=== PATIENT | male | born 1950 | race Caucasian/White ===

== ENCOUNTER → 2017-09-27 | Outpatient (CLI) | payer MEDICARE, OTHER ==
[~2017-09-27] MED LIST: ACE500 PO; ALL300 PO; ALLO-2 PO; AMI10 PO; AMIT-104 PO; ASP325 PO; ASPI-1471 PO; ATOR10TA24 PO; ATOR20TA65 PO; ATR10 PO; GLUC-198 PO; HYDR-2966 PO; LEVO50TA86 PO; LOR10/325 PO; LOR5/325 PO; METO100T20 PO; METO25TA23 PO; METO50TA19 PO; NIAC100040 PO; OMEP-125 PO; PNEU0.5D3 IM; SILD100T59 PO; [UNRECOGNIZED DRUG - CODE] PO
--- NOTE | 2017-09-27 16:12 | RADIOLOGY IMAGING REPORT ---
FACILITY: [facility] PATIENT NAME: Rafy Zamora : 1950 MR: [id number] V: [id number] EXAM DATE: ORDERING PHYSICIAN: UZAIR BRADEN TECHNOLOGIST: Location: [facility] [place] Patient: Rafy Zamora : 1950 Visit/Account:[id number] Date of Sevice: 09/27/2017 EXAMINATION: MRI Lumbar spine without intravenous contrast HISTORY: Chronic low back pain. COMPARISON: 11/22/2007. TECHNIQUE: Multi-planar, multi-sequence lumbar spine MRI was performed without intravenous contrast administration. FINDINGS: Alignment: 2 to 3 mm of retrolisthesis of L2 over L3. No significant change. Vertebral marrow signal: Mild discogenic bone marrow edema at L5-S1 and to a lesser degree at L4-L5. Distal thoracic cord: Negative. Conus: negative, terminates at L1 Cauda equina: Negative. Paravertebral soft tissues: Negative. Visualized abdominal and pelvic structures: Bilateral parapelvic renal cysts. Otherwise negative. Disc Spaces: Lower thoracic spine: Mild disc bulge and facet hypertrophy at T11-T12 with no significant stenosis. L1-2: Negative. L2-3: Grade 1 retrolisthesis. Moderate disc height loss with circumferential disc osteophyte complex and facet hypertrophy. No significant spinal canal stenosis. Moderate bilateral neural foraminal sten osis. Worsened compared with 11/22/2007. L3-4: Mild disc height loss with circumferential disc bulge, facet hypertrophy, and ligamentum flavum thickening. Mild spinal canal stenosis. Mild right and moderate left neural foraminal stenosis. Mini awa worsened compared with 11/22/2007. L4-5: Moderate disc at loss and disc osteophyte complex, asymmetric to the left. Left greater than ri ght facet hypertrophy. Mild spinal canal stenosis. Mild right and moderate left neural foraminal sten osis. Slightly worsened compared with 11/22/2007. L5-S1: Mild disc height loss with circumferential disc bulge, superimposed right central disc protrus ion, and mild facet hypertrophy. Mild spinal canal stenosis. Mild bilateral neural foraminal stenosis . Mildly worsened compared with 11/22/2007. IMPRESSION: Multilevel degenerative disc disease and facet hypertrophy with. 3 mm of retrolisthesis o f L2 over L3. Findings are mildly worsened at multiple levels compared with 11/22/2007. Please see abov e report for level by level description. Report Dictated By: Curtis Bajwa MD at 09/27/2017 3:56 PM Report E-Signed By: Curtis Bajwa MD at 09/27/2017 4:07 PM WSN:[email or web address]
== END ==
LOC: MRI 01:33
PROVIDERS: ATTEND Internal Medicine
DX: M51.37 Other intervertebral disc degeneration, lumbosacral region (principal)
CPT/HCPCS: 72148

== ENCOUNTER 2017-11-29 00:54 | Day surgery (SDC) | payer MEDICARE, OTHER ==
[~2017-11-29] VITALS: Ht 188 cm; Wt 104.3 kg
[2017-11-29 09:30] VITALS: BP 110/83
[2017-11-29] MEDS ORDERED: LIDOCAINE/SOD BICARB 8.4% SYR ID ONE (09:30)
[2017-11-29] MEDS ORDERED: NORMOSOL R SOLN(*) 1000 ML BAG 1,000 ML IV PRN (09:30)
[2017-11-29 11:42] VITALS: BP 96/66
--- NOTE | 2017-11-29 11:45 | Short(Outpt) Discharge Summary ---
Discharge Summary Reason for Hosp/Final Diag: (1) History of colon polyps Status: Chronic Hospital Course & Plan: Colonoscopy with polypectomy x3 completed without problems. Departure Discharge to: Home, Self Care Discharge Instructions Home Meds Active Scripts Levothyroxine Sodium (LEVOTHYROXINE SODIUM) 50 Mcg Tablet, 1 TAB PO QDAY, #90 TAB 0 Refills Prov:UZAIR BRADEN MD 10/06/17 Metoprolol Succinate (METOPROLOL SUCCINATE) 100 Mg Tab.er.24h, 1 TAB PO QDAY, #90 TAB 3 Refills Prov:UZAIR BRADEN MD 08/09/17 Atorvastatin Calcium (ATORVASTATIN CALCIUM) 20 Mg Tablet, 1 TAB PO QDAY, #90 TAB 3 Refills Prov:UZAIR BRADEN MD 08/09/17 Allopurinol (Allopurinol) 300 Mg Tablet, 1 TAB PO DAILY, #90 TAB 3 Refills Prov:UZAIR BRADEN MD 08/09/17 Hydrochlorothiazide (HYDROCHLOROTHIAZIDE) 25 Mg Tablet, 1 TAB PO QDAY for 90 Days, #90 TAB 3 Refills Prov:UZAIR BRADEN MD 08/09/17 Sildenafil Citrate (VIAGRA) 100 Mg Tablet, 1 TAB PO QDAY PRN for sexual activity, #10 TAB 3 Refills Prov:UZAIR BRADEN MD 08/09/17 Amitriptyline Hcl (AMITRIPTYLINE HCL) 10 Mg Tablet, 1 TAB PO QHS, #90 TAB 3 Refills Prov:UZAIR BRADEN MD 08/09/17 Reported Medications Aspirin (ASPIR 81) 81 Mg Tablet., 1 TAB PO QDAY, TAB 01/23/14 Diet: Regular Activity: As Tolerated Special Instructions: Your colonoscopy was completed without problems and your prep was excellent (Good Job!!). I removed 3 small polyps from your colon and they were sent to pathology. My office will call you in the next week and let you know what the polyps are but, in any case, your next colonoscopy should be in 5 years due to your previous history of colon polyps. AMY GUZMAN MD Nov 29, 2017 11:45
[2017-11-29] MEDS ORDERED: PROPOFOL EMUL(*) 10MG/ML 20 ML 40 ML ONE (12:07)
[2017-11-29 12:11] VITALS: BP 98/73
[2017-11-29 12:17] VITALS: BP 101/74
[2017-11-29 12:18] VITALS: BP 93/77
== END 2017-11-29 12:30 | disposition home or self-care (01) ==
LOC: OR 00:54
PROVIDERS: ATTEND Surgery
DX: Z12.11 Encounter for screening for malignant neoplasm of colon (principal); D12.0 Benign neoplasm of cecum; K63.5 Polyp of colon
CPT/HCPCS: 00811; 45385; 88305; J2704

== ENCOUNTER → 2018-08-31 | Outpatient (CLI) | payer MEDICARE, OTHER ==
[~2018-08-31] MED LIST changes: +ATOR40TA69 PO; +FLU180SY11 IM; -OMEP-125 PO; +OMEP-126 PO; +PNEI IM; +SILD100T7 PO; +[UNRECOGNIZED DRUG - CODE] PO
--- NOTE | 2018-08-31 14:04 | RADIOLOGY IMAGING REPORT ---
FACILITY: [facility] - [place] PATIENT NAME: Rafy Zamora : 1950 MR: [id number] V: [id number] EXAM DATE: ORDERING PHYSICIAN: WIN ROSSI TECHNOLOGIST: Location: [facility] Patient: Rafy Zamora : 1950 Visit/Account:[id number] Date of Sevice: 08/31/2018 MRI left knee Indication: Left knee pain Comparison: None available. Technique: Multiplanar, multisequence MRI examination is performed of the left knee without contrast. Findings: Medial compartment: Markedly truncated appearance of the body and anterior horn of the medial meniscus suggests prior par tial meniscectomy. Correlate with clinical and surgical history. There is irregular increased signal within the peripheral posterior horn suggesting subtle undersurface tearing of posterior horn. There is minimal chondral thinning of the mid weightbearing medial femoral condyle and medial tibial plateau cartilage. Lateral compartment: Macerated complex tearing and/or history of prior partial meniscectomy the posterior horn and body la teral meniscus with moderate lateral extrusion of the lateral joint line seen. Irregular undersurface tearing at the peripheral anterior horn/body junction lateral meniscus also seen. Severe full-thickness chondral loss throughout the mid to posterior weightbearing lateral femoral con dyle and lateral tibial plateau cartilage with a few foci of underlying subchondral edema noted as we ll. Marginal osteophytosis of medial and lateral compartments also seen. Patellofemoral compartment: Minimal fissuring and irregularity median ridge medial facet patella cartilage. Bones and marrow: No acute or aggressive osseous abnormality. Ligaments and tendons: Diffuse increased signal throughout the ACL fibers suggests mucoid degeneration with majority of the fibers appearing intact. The PCL is intact. The extensor mechanism is intact. The MCL is intact. The iliotibial band, biceps femoris tendon, and the fibular collateral ligament is intact Mild tendinopathy proximal popliteus tendon. Soft tissues: There is a moderate sized suprapatellar joint effusion. Minimal prepatellar edema. Small Holliday's cyst.. IMPRESSION: 1. Significantly truncated appearances of the bilateral menisci may relate to bilateral prior partial meniscectomies and/or macerated tears with evidence of recurrent tearing in particular at the periph eral anterior horn/body junction of the lateral meniscus. 2. Severe chondral loss lateral component cartilage. 3. Small Holliday's cyst. 4. Diffuse mucoid degeneration throughout the ACL fibers which are otherwise intact. Report Dictated By: Hong Ramirez MD at 08/31/2018 1:42 PM Report E-Signed By: Hong Ramirez MD at 08/31/2018 1:59 PM WSN:[id number]
== END ==
LOC: MRI 03:58
PROVIDERS: ATTEND Emergency Medicine
DX: M71.21 Synovial cyst of popliteal space [Baker], right knee (principal)

== ENCOUNTER → 2018-09-19 | Outpatient (CLI) | payer MEDICARE, OTHER ==
[~2018-09-19] MED LIST changes: +AZIT-17 PO; +PROM5SYR PO
--- NOTE | 2018-09-19 12:14 | RADIOLOGY IMAGING REPORT ---
FACILITY: [facility] PATIENT NAME: Rafy Zamora : 1950 MR: [id number] V: [id number] EXAM DATE: ORDERING PHYSICIAN: WIN RSOSI TECHNOLOGIST: Location: [facility] - [place] Patient: Rafy Zamora : 1950 Visit/Account:[id number] Date of Sevice: 09/19/2018 2 VIEWS CHEST INDICATION: Productive cough and dyspnea COMPARISON: None available FINDINGS: Cardiomediastinal silhouette: Heart size within normal limits. Lungs: Generalized peribronchial opacities noted bilaterally. Left perihilar air bronchogram. There is no pneumothorax or pleural effusion. Bones and soft tissues: Unremarkable IMPRESSION: 1. Findings most compatible with peribronchial inflammatory changes, possibly bronchitis. Presence of air bronchogram in the left lower lobe may herald early pneumonia. Report Dictated By: Alejandro Hernandez MD at 09/19/2018 12:07 PM Report E-Signed By: Alejandro Hernandez MD at 09/19/2018 12:09 PM WSN:[id number]
== END ==
LOC: RAD 11:25
PROVIDERS: ATTEND Emergency Medicine
DX: R05 Cough (principal)
CPT/HCPCS: 71046